=== PATIENT | female | born 1965 | race Caucasian/White ===

== ENCOUNTER 2018-03-26 07:04 | Emergency (ER) | payer OTHER ==
[~2018-03-26] VITALS: Ht 172.7 cm; Wt 74.3 kg
[~2018-03-26 07:04] MED LIST: CIPR500T87 PO; ESTROGEN PO; LEVO25TA4 PO
[2018-03-26] MEDS ORDERED: ONDANSETRON ODT 4 MG PO ONE (07:30)
[2018-03-26] MEDS ORDERED: SODIUM CHLORIDE FLUSH 10ML SYR IVF ONE (07:30)
[2018-03-26] MEDS ORDERED: SODIUM CHLORIDE 0.9% 1,000ML IVBOLUS ONE (07:30)
[2018-03-26] MEDS ORDERED: MORPHINE SULFATE 4 MG/ML, 1ML ONE ×2 (07:38→10:14)
[2018-03-26] MEDS ORDERED: ONDANSETRON ODT 4 MG ONE (07:38)
[2018-03-26] MEDS: MORPHINE SULFATE 4 MG/ML, 1ML IVPush PRN ×2 (07:39→10:16)
[2018-03-26 07:51] LABS: BASOPHILS % (AUTO) 0 % (0-1); EOSINOPHILS # (AUTO) 0.01 x10^3/uL (0-0.4); EOSINOPHILS % (AUTO) 0 % (1-7); LYMPHOCYTES # (AUTO) 0.86 x10^3/uL (1-3.4); LYMPHOCYTES % (AUTO) 7 % (22-44); MD NO; MEAN CORPUSCULAR HEMOGLOBIN 19.6 pg (27.0-34.8); MEAN CORPUSCULAR HGB CONC 31.2 g/dL (32.4-35.8); MEAN CORPUSCULAR VOLUME 62.7 fL (80-100); MEAN PLATELET VOLUME 8.9 fL (7.4-10.4); MONOCYTES # (AUTO) 0.36 x10^3/uL (0.2-0.8); MONOCYTES % (AUTO) 3 % (2-9); NEUTROPHILS # (AUTO) 10.84 x10^3/uL (1.8-6.8); NEUTROPHILS % (AUTO) 90 % (42-75); PLATELET COUNT 222 x10^3/uL (130-400); RED BLOOD COUNT 6.15 x10^6/uL (3.82-5.3); RED CELL DISTRIBUTION WIDTH 16.7 % (9.6-15.2)
[2018-03-26 07:59] LABS: ALBUMIN 3.9 g/dL (3.4-5.0); ANION GAP 10 mmol/L (5-15); CHLORIDE 104 mmol/L (98-107)
[2018-03-26 08:03] LABS: ALANINE AMINOTRANSFERASE 29 U/L (12-78); ALKALINE PHOSPHATASE 92 U/L (45-117); BILIRUBIN,TOTAL 0.7 mg/dL (0.2-1.0); CREATININE 0.85 mg/dL (0.55-1.02); TOTAL PROTEIN 7.8 g/dL (6.4-8.2)
[2018-03-26] MEDS ORDERED: PROMETHAZINE 25 MG/ML, 1ML ONE (08:12)
[2018-03-26] MEDS ORDERED: PROMETHAZINE 25 MG/ML, 1ML IM ONE (08:30)
[2018-03-26 08:40] LABS: % IRON SATURATION 11 % (20-55); IRON LEVEL 37 mcg/dL (50-170); TOTAL IRON BINDING CAPACITY 330 mcg/dL (250-450)
[2018-03-26 08:50] LABS: INTERNATIONAL NORMALIZED RATIO 1.02 (0.93-1.1); PROTHROMBIN TIME 10.6 Seconds (9.6-11.5)
[2018-03-26] MEDS ORDERED: MAALOX/HYOSCYAMINE/LIDOCAINE 45 ML BTL ONE (09:12)
[2018-03-26] MEDS ORDERED: MAALOX/HYOSCYAMINE/LIDOCAINE 45 ML BTL PO ONE (10:30)
[2018-03-26] MEDS ORDERED: OMNIPAQUE 350 MG/ML, 100ML BOTTLE ONE (12:01)
[2018-03-26] MEDS ORDERED: CEFTRIAXONE PMX 1GM/50ML 50 ML ONE (12:24)
[2018-03-26] MEDS ORDERED: CEFTRIAXONE PMX 1GM/50ML 50 ML IV ONE (12:30)
[2018-03-26 13:31] VITALS: BP 119/76
[2018-03-26] MEDS ORDERED: DEXT10TA7 PO (19:18)
== END 2018-03-26 13:34 | disposition home or self-care (01) ==
LOC: ED 08:49
DX: R10.84 Generalized abdominal pain (principal); R19.7 Diarrhea, unspecified; R11.0 Nausea
CPT/HCPCS: 36415; 74177; 80053; 83540; 83550; 85025; 85610; 86900; 96361; 96365; 96372; 96375; 96376; 99285; J0696; J2550; J7030; Q0162; Q9967

== ENCOUNTER → 2020-08-03 | Outpatient (CLI) | payer OTHER ==
[~2020-08-03] MED LIST changes: +DEXT10TA7 PO; +DULO30CA2 PO; +GABA300C PO; +LEVO100T5 PO; +TRAM50TA2 PO
[2020-08-03 10:44] LABS: BASOPHILS % (AUTO) 1 % (0-1); EOSINOPHILS % (AUTO) 2 % (1-7); LYMPHOCYTES % (AUTO) 38 % (22-44); MEAN CORPUSCULAR HGB CONC 32.2 g/dL (32.4-35.8); MONOCYTES % (AUTO) 6 % (2-9); NEUTROPHILS % (AUTO) 53 % (42-75); PLATELET COUNT 291 x10^3/uL (130-400); RED BLOOD COUNT 6.14 x10^6/uL (3.82-5.3); RED CELL DISTRIBUTION WIDTH 16.7 % (9.6-15.2)
[2020-08-03 10:45] LABS: INTERNATIONAL NORMALIZED RATIO 1.04 (0.93-1.1)
[2020-08-03 10:48] LABS: ANION GAP 5 mmol/L (5-15); CALCIUM 9.7 mg/dL (8.5-10.1); CHLORIDE 103 mmol/L (98-107); CREATININE 0.86 mg/dL (0.55-1.02)
[2020-08-03 11:13] LABS: MD MORPH REVIEW ONLY
[2020-08-03 11:14] LABS: ANISOCYTOSIS 1+; MICROCYTOSIS 2+
[2020-08-03 11:15] LABS: <PLATELET ESTIMATE> ADEQUATE; <PLT MORPHOLOGY> NORMAL PLT MORPH; HYPOCHROMIA 1+; OVALOCYTES 1+; POLYCHROMASIA 1+; TARGET CELLS 1+
== END | disposition home or self-care (01) ==
LOC: STAR 09:02
PROVIDERS: ATTEND Orthopaedic Surgery
DX: Z01.812 Encounter for preprocedural laboratory examination (principal); Z20.828 Contact with and (suspected) exposure to other viral communicable diseases; M17.12 Unilateral primary osteoarthritis, left knee; Z79.01 Long term (current) use of anticoagulants
CPT/HCPCS: 80048; 83036; 85025; 85610; 85730; 87081; 87635

== ENCOUNTER 2020-08-09 06:46 | Day surgery (SDC) | payer OTHER ==
[~2020-08-09] VITALS: Ht 172.7 cm; Wt 87.0 kg
[~2020-08-09 06:46] MED LIST changes: +EPINEPHRINE 1 MG/ML, 1ML ONE; +KETOROLAC 60 MG/2 ML ONE; +ROPIvacaine/PF 0.5%, 20 ML ONE; +ROPIvacaine/PF 0.5%, 30 ML ONE; +SODIUM CHLORIDE 0.9% 50 ML ONE; +TRANEXAMIC ACID 100 MG/ML, 10ML ONE; +VANCOMYCIN 1,000 MG ONE
[2020-08-09] MEDS ORDERED: HYDROcodone/APAP 5/325 TABLET PO PRN (07:00)
[2020-08-09] MEDS ORDERED: CEFAZOLIN PMX 2GM/50ML 50 ML IVPB SCH (07:00)
[2020-08-09] MEDS ORDERED: MAGNESIUM HYDROXIDE 8%, 30ML UDC PO PRN (07:00)
[2020-08-09] MEDS ORDERED: ONDANSETRON 2MG/ML, 2ML IV PRN (07:00)
[2020-08-09] MEDS ORDERED: ZOLPIDEM 5MG TABLET PO PRN (07:00)
[2020-08-09] MEDS ORDERED: ACETAMINOPHEN 650 MG/20.3 ML UDC PO PRN (07:00)
[2020-08-09] MEDS ORDERED: ONDANSETRON 4 MG TABLET PO PRN (07:00)
[2020-08-09] MEDS ORDERED: OXYcodone IR 5MG TABLET PO PRN (07:00)
[2020-08-09] MEDS ORDERED: BISACODYL 10 MG SUPP PR PRN (07:00)
[2020-08-09] MEDS ORDERED: NS + 20MEQ KCL 1,000 ML IV SCH (07:00)
[2020-08-09] MEDS ORDERED: SENNA/DOCUSATE TABLET PO PRN (07:00)
[2020-08-09 07:35] VITALS: BP 120/87
[2020-08-09] MEDS ORDERED: GABAPENTIN 300 MG CAPSULE PO STA (07:38)
[2020-08-09] MEDS ORDERED: ACETAMINOPHEN 500 MG TABLET PO STA (07:38)
[2020-08-09] MEDS ORDERED: ACETAMINOPHEN 500 MG TABLET ONE (07:45)
[2020-08-09] MEDS ORDERED: CHLORHEXIDINE 15 ML UDC ONE (07:45)
[2020-08-09] MEDS ORDERED: GABAPENTIN 300 MG CAPSULE ONE (07:45)
[2020-08-09] MEDS ORDERED: LACTATED RINGERS 1,000 ML IV SCH (08:00)
[2020-08-09] MEDS ORDERED: CHLORHEXIDINE 15 ML UDC MM ONE (08:00)
[2020-08-09] MEDS ORDERED: MIDAZOLAM 1 MG/ML, 2ML ONE (08:02)
[2020-08-09] MEDS ORDERED: FENTANYL PF 250 MCG/5ML ONE (08:02)
[2020-08-09] MEDS ORDERED: DEXAMETHASONE 4 MG/ML, 1ML ONE (08:40)
[2020-08-09] MEDS ORDERED: PROPOFOL 10 MG/ML, 50ML ONE (08:40)
[2020-08-09] MEDS ORDERED: GABAPENTIN 300 MG CAPSULE PO SCH (09:00)
[2020-08-09] MEDS ORDERED: LEVOTHYROXINE 100 MCG TABLET PO SCH (09:00)
[2020-08-09] MEDS ORDERED: DOCUSATE 100 MG CAPSULE PO SCH (09:00)
[2020-08-09] MEDS ORDERED: DULOXETINE 30 MG CAPSULE.DR PO SCH (09:00)
[2020-08-09] MEDS ORDERED: MEPERIDINE/PF 25MG/0.5ML IVPush PRN (09:30)
[2020-08-09] MEDS ORDERED: PROMETHAZINE 25 MG/ML, 1ML IVPush PRN (09:30)
[2020-08-09] MEDS ORDERED: ALBUTEROL SULFATE 2.5 MG/3 ML NPPB PRN (09:30)
[2020-08-09] MEDS ORDERED: LABETALOL 5MG/ML, 20ML IV PRN (09:30)
[2020-08-09] MEDS ORDERED: FENTANYL PF 100 MCG/2ML IV PRN (09:30)
[2020-08-09] MEDS ORDERED: HYDROmorphone 1 MG/ML, 1ML INJ IVPush PRN (09:30)
[2020-08-09] MEDS ORDERED: hydrALAzine 20 MG/ML, 1ML IV PRN (09:30)
[2020-08-09] MEDS ORDERED: METHOCARBAMOL 1,000 MG in DEXTROSE 5% 100 ML IV PRN (09:30)
[2020-08-09] MEDS ORDERED: LORazepam 2 MG/ML, 1ML IVPush PRN (09:30)
[2020-08-09] MEDS ORDERED: ACETAMINOPHEN 325 MG TABLET PO PRN (09:30)
[2020-08-09] MEDS ORDERED: BUPIVACAINE/PF 0.25% ONE (09:34)
[2020-08-09] MEDS ORDERED: PROPOFOL 10 MG/ML, 20ML ONE (09:34)
[2020-08-09] MEDS ORDERED: CEFAZOLIN 1,000 MG ONE (09:34)
[2020-08-09] MEDS ORDERED: LIDOCAINE-MPF 2% ,5ML ONE (09:34)
[2020-08-09] MEDS ORDERED: ONDANSETRON 2MG/ML, 2ML ONE (09:34)
[2020-08-09] MEDS ORDERED: DIPHENHYDRAMINE 25 MG CAPSULE PO PRN (10:00)
[2020-08-09] MEDS ORDERED: OXYcodone 5 MG/5 ML ORAL.SOL UDC ONE (10:00)
[2020-08-09] MEDS: OXYcodone 5 MG/5 ML ORAL.SOL UDC PO PRN ×2 (10:01→13:59)
[2020-08-09] MEDS ORDERED: FENTANYL PF 100 MCG/2ML ONE (10:11)
[2020-08-09] MEDS: HYDROmorphone 1 MG/ML, 1ML INJ IV PRN ×4 (10:25→12:31)
[2020-08-09] MEDS ORDERED: HYDROmorphone 1 MG/ML, 1ML INJ ONE ×2 (10:25→10:48)
[2020-08-09] MEDS ORDERED: ASPIRIN 81 MG TABLET EC PO SCH (18:00)
[2020-08-10] MEDS ORDERED: DEXAMETHASONE 4 MG/ML, 1ML IVPush SCH (06:00)
== END 2020-08-09 14:20 | disposition home or self-care (01) ==
LOC: OUT 06:46
PROVIDERS: ATTEND Orthopaedic Surgery
DX: M17.12 Unilateral primary osteoarthritis, left knee (principal); G89.18 Other acute postprocedural pain; E07.9 Disorder of thyroid, unspecified; Z79.890 Hormone replacement therapy; Z79.891 Long term (current) use of opiate analgesic; Z79.899 Other long term (current) drug therapy; Z88.2 Allergy status to sulfonamides; Z98.890 Other specified postprocedural states; Z82.61 Family history of arthritis
CPT/HCPCS: 20985; 27446; 64447; 97110; 97161; 97165; C1713; C1776; J0171; J0690; J1100; J1170; J1885; J2250; J2405; J2704; J2795; J2800; J3010; J3370; J7120

== ENCOUNTER 2021-03-22 18:24 | Emergency (ER) | payer OTHER ==
[~2021-03-22] VITALS: Ht 172.7 cm; Wt 89.4 kg
[~2021-03-22 18:24] MED LIST changes: -EPINEPHRINE 1 MG/ML, 1ML ONE; -KETOROLAC 60 MG/2 ML ONE; -ROPIvacaine/PF 0.5%, 20 ML ONE; -ROPIvacaine/PF 0.5%, 30 ML ONE; -SODIUM CHLORIDE 0.9% 50 ML ONE; -TRANEXAMIC ACID 100 MG/ML, 10ML ONE; -VANCOMYCIN 1,000 MG ONE
[2021-03-22 19:00] LABS: BASOPHILS % (AUTO) 1 % (0-1); EOSINOPHILS % (AUTO) 3 % (1-7); LYMPHOCYTES % (AUTO) 39 % (22-44); MEAN CORPUSCULAR HEMOGLOBIN 19.9 pg (27.0-34.8); MEAN CORPUSCULAR HGB CONC 31.8 g/dL (32.4-35.8); MEAN PLATELET VOLUME 8.7 fL (7.4-10.4); MONOCYTES % (AUTO) 8 % (2-9); NEUTROPHILS % (AUTO) 50 % (42-75); PLATELET COUNT 285 x10^3/uL (130-400); RED BLOOD COUNT 6.46 x10^6/uL (3.82-5.3)
[2021-03-22] MEDS ORDERED: SODIUM CHLORIDE 0.9% 1,000ML IVBOLUS ONE (19:00)
[2021-03-22] MEDS ORDERED: ONDANSETRON 2MG/ML, 2ML IVPush ONE (19:00)
[2021-03-22] MEDS ORDERED: FAMOTIDINE 20 MG/2 ML IVPush ONE (19:00)
[2021-03-22 19:10] LABS: ALBUMIN 3.9 g/dL (3.4-5.0); ANION GAP 8 mmol/L (5-15); CALCIUM 9.5 mg/dL (8.5-10.1); CHLORIDE 105 mmol/L (98-107); CREATININE 0.75 mg/dL (0.55-1.02)
[2021-03-22 19:13] LABS: ALANINE AMINOTRANSFERASE 123 U/L (12-78); ALKALINE PHOSPHATASE 155 U/L (45-117); BILIRUBIN,TOTAL 0.6 mg/dL (0.2-1.0); TOTAL PROTEIN 8.2 g/dL (6.4-8.2)
[2021-03-22] MEDS ORDERED: FAMOTIDINE 20 MG/2 ML ONE (19:44)
[2021-03-22] MEDS ORDERED: ONDANSETRON 2MG/ML, 2ML ONE (19:44)
[2021-03-22] MEDS ORDERED: MORPHINE SULFATE 4 MG/ML, 1ML ONE ×2 (19:44→20:26)
[2021-03-22] MEDS: MORPHINE SULFATE 4 MG/ML, 1ML IVPush PRN ×2 (19:48→20:28)
[2021-03-22 19:54] LABS: MICROSCOPIC NOT IND
--- NOTE | 2021-03-22 19:57 | NUR ---
PT TO ROOM 37 W/ C/O L FLANK LUQ ABD PAIN STARTED 3 DAYS AGO. PT STATES SHE WENT TO SEE A DR AND HAD CXR DONE THAT WAS NEGATIVE. PAIN INCREASED AND WAS TOLD BY HER DR TO COME TO THE ER. PT NOTED TO BE GUARDING HER ABDOMEN. PT RESTING ON GURNEY. MONITORS APPLIED. VSS. PIV INITIATED. MEDICATED PER SEP. WARM BLANKET PROVIDED. CALL LIGHT IN REACH.
[2021-03-22] MEDS ORDERED: OMNIPAQUE 350 MG/ML, 100ML BOTTLE ONE (20:19)
[2021-03-22 20:44] VITALS: BP 115/75
--- NOTE | 2021-03-22 20:44 | NUR ---
PT RESTING ON TERESSA. SHIRLEY. VSS. ERP DR. MINOR AT BEDSIDE FOR EVAL.
--- NOTE | 2021-03-22 20:50 | NUR ---
REPORT GIVEN TO TAMI KRISHNAMURTHY.
[2021-03-22] MEDS ORDERED: MAALOX/HYOSCYAMINE/LIDOCAINE 45 ML BTL PO ONE (21:00)
== END 2021-03-22 21:37 | disposition home or self-care (01) ==
LOC: ED 20:45
DX: K29.00 Acute gastritis without bleeding (principal)
CPT/HCPCS: 36415; 74177; 80053; 81003; 83690; 85025; 96361; 96374; 96375; 96376; 99285; J2270; J2405; J7030; Q9967

== ENCOUNTER 2021-04-07 15:05 | Emergency (ER) | payer OTHER ==
[~2021-04-07] VITALS: Ht 172.7 cm; Wt 90.3 kg
[2021-04-07 16:02] LABS: ALANINE AMINOTRANSFERASE 97 U/L (12-78); ALBUMIN 4.1 g/dL (3.4-5.0); ANION GAP 4 mmol/L (5-15); CALCIUM 9.6 mg/dL (8.5-10.1); CHLORIDE 103 mmol/L (98-107); CREATININE 0.78 mg/dL (0.55-1.02)
[2021-04-07 16:04] LABS: ALKALINE PHOSPHATASE 154 U/L (45-117); BILIRUBIN,TOTAL 0.8 mg/dL (0.2-1.0); TOTAL PROTEIN 8.3 g/dL (6.4-8.2)
[2021-04-07 16:11] LABS: BASOPHILS % (AUTO) 0 % (0-1); EOSINOPHILS % (AUTO) 2 % (1-7); LYMPHOCYTES % (AUTO) 34 % (22-44); MEAN CORPUSCULAR HEMOGLOBIN 19.8 pg (27.0-34.8); MEAN CORPUSCULAR HGB CONC 31.8 g/dL (32.4-35.8); MEAN PLATELET VOLUME 8.7 fL (7.4-10.4); MONOCYTES % (AUTO) 8 % (2-9); NEUTROPHILS % (AUTO) 56 % (42-75); PLATELET COUNT 240 x10^3/uL (130-400); RED BLOOD COUNT 5.89 x10^6/uL (3.82-5.3); RED CELL DISTRIBUTION WIDTH 16.7 % (9.6-15.2)
[2021-04-07] MEDS ORDERED: MORPHINE SULFATE 4 MG/ML, 1ML IVPush PRN (18:30)
[2021-04-07] MEDS ORDERED: ONDANSETRON 2MG/ML, 2ML IVPush ONE (18:30)
--- NOTE | 2021-04-07 19:13 | NUR ---
belt maker helper: patient to room from lobby.
[2021-04-07] MEDS ORDERED: OMNIPAQUE 350 MG/ML, 100ML BOTTLE ONE (19:30)
[2021-04-07] MEDS ORDERED: MORPHINE SULFATE 4 MG/ML, 1ML ONE (19:35)
[2021-04-07] MEDS ORDERED: ONDANSETRON 2MG/ML, 2ML ONE (19:35)
[2021-04-07 20:41] LABS: MICROSCOPIC AUTO
[2021-04-07 21:34] VITALS: BP 105/64
[2021-04-07] MEDS ORDERED: DICYCLOMINE 20 MG TABLET ONE (21:55)
[2021-04-07] MEDS ORDERED: DICYCLOMINE 20 MG TABLET PO ONE (22:00)
== END 2021-04-07 22:21 | disposition home or self-care (01) ==
LOC: ED 19:21
DX: R10.84 Generalized abdominal pain (principal)
CPT/HCPCS: 36415; 74177; 76700; 80053; 80074; 81001; 83690; 85025; 87086; 93005; 96374; 96375; 99285; J2270; J2405; Q9967